=== PATIENT | female | born 1960 | race Caucasian/White ===

== ENCOUNTER 2022-01-13 12:28 | Inpatient (IN) | payer MEDICARE ==
[~2022-01-13] VITALS: Ht 160 cm; Wt 42.0 kg
[2022-01-15] MEDS ORDERED: TYLENOL325 MG PO (17:17)
--- NOTE | 2022-01-20 11:35 | EKG ---
[facility] [address] [facility] [place], [place] [address] Signed Sinus tachycardia Left axis deviation Septal infarct , age undetermined Abnormal ECG No previous ECGs available Confirmed by CLAUDIO ALLEN MD ([id number] on 01/20/2022 11:34:54 AM Electronically Signed By: CLAUDIO ALLEN MD 01/20/22 1135 PATIENT NAME: DEMARCUS POPE Electrocardiogram DATE OF : 56 PHYSICIAN: CLAUDIO ALLEN MD REPORT #: [id number] REPORT IS CONFIDENTIAL AND NOT TO BE RELEASED WITHOUT AUTHORIZATION
[2022-01-24] MEDS ORDERED: MELATONIN3 MG PO (16:14)
== END 2022-01-25 12:45 | DRG 871 ==
LOC: ED 12:28 → MS 15:40 → CCU 19:09 → MS 01-16 16:26
PROVIDERS: ADMIT Family Medicine; ATTEND Internal Medicine
DX: A41.9 Sepsis, unspecified organism (principal); J18.9 Pneumonia, unspecified organism; E87.20 Acidosis, unspecified; N39.0 Urinary tract infection, site not specified; E46 Unspecified protein-calorie malnutrition; Z68.1 Body mass index [BMI] 19.9 or less, adult; G35 Multiple sclerosis; R65.20 Severe sepsis without septic shock; Z90.49 Acquired absence of other specified parts of digestive tract; Z98.890 Other specified postprocedural states; Z66 Do not resuscitate; Z20.822 Contact with and (suspected) exposure to COVID-19; E83.51 Hypocalcemia
CPT/HCPCS: 36415; 51701; 71045; 74230; 80048; 80053; 80202; 81001; 83605; 83735; 85007; 85025; 85610; 85730; 86140; 87040; 87088; 87186; 87502; 92610; 92611; 93005; 93010; 94668; 94760; 97110; 97162; 97167; 97530; 97535; 97760; 99285-25; A9270; C9113; C9803; J0131; J0610; J0692; J1650; J1885; J1956; J2060; J2270; J2405; J2543; J2920; J2930; J3370; J3475; J3480; J7030; J7060; U0003

== ENCOUNTER 2024-06-13 11:30 | Inpatient (IN) | payer MEDICARE ==
[~2024-06-13] VITALS: Ht 160 cm; Wt 41.7 kg
[~2024-06-13 11:30] MED LIST: LOMOTIL TABLET1 EACH PO; MACROBID 100 M100 MG PO; MELATONIN3 MG PO; ONDANSETRON ODT4 MG PO; TYLENOL325 MG PO
[2024-06-13] MEDS ORDERED: DULOXETINE HCL20 MG PO (11:39)
[2024-06-13] MEDS ORDERED: PIPERACILLIN/TAZOBACTAM 4.5 GM VIAL ONE (11:59)
[2024-06-13] MEDS ORDERED: CEFTRIAXONE SODIUM 2 GM in SODIUM CHLORIDE 0.9% 100 ML IV ONE (12:00)
[2024-06-13] MEDS ORDERED: SODIUM CHLORIDE 0.9% 1,572 ML IV PRN (12:00)
[2024-06-13 12:15] LABS: BASOPHILS 0.3 % (0-2); EOSINOPHILS 0.4 % (0-6); HEMOGLOBIN 11.7 g/dL (12.0-18.0); LYMPHOCYTES 10.9 % (24-44); MCH 33.7 (27-36); MCHC 34.5 g/dl (30-36); MCV 97.8 fl (81-99); MONOCYTES 8.5 % (0-12); NEUTROPHILS 79.9 % (39-80); PLATELET COUNT 281 K/uL (140-440); RBC 3.48 M/ul (4.3-5.7); RDW 11.9 (10.5-15.0)
[2024-06-13] MEDS ORDERED: PIPERACILLIN/TAZOBACTAM 4.5 GM in SODIUM CHLORIDE 0.9% 100 ML IV ONE (12:15)
[2024-06-13] MEDS ORDERED: VANCOMYCIN HCL 1 GM in DEXTROSE 5% 250 ML IV ONE (12:30)
[2024-06-13 12:32] LABS: ALBUMIN 2.5 g/dL (3.4-5.0); ALBUMIN/GLOBULIN RATIO 0.56 (1.1-2.4); BILIRUBIN, TOTAL 0.4 mg/dL (0.2-1.0); BUN/CREATININE RATIO 18.64 (6.0-28.6); CALCIUM 8.9 mg/dL (8.5-10.1); CREATININE, SERUM 0.59 mg/dL (0.55-1.02)
[2024-06-13 12:36] LABS: LACTIC ACID, BLOOD 1.8 mmol/L (0.4-2.0)
[2024-06-13 13:44] LABS: BILIRUBIN, URINE NEGATIVE (negative); BLOOD/HGB, URINE SMALL (Negative); KETONE, URINE NEGATIVE (Negative); LEUK ESTERASE, URINE MODERATE (negative); NITRITE, URINE POSITIVE (negative)
[2024-06-13] MEDS ORDERED: POTASSIUM CHLORIDE 20 MEQ/15 ML CUP PO ONE (13:45)
[2024-06-13 14:11] LABS: EPITHELIAL CELLS, URINE SQUAMOUS 1+ /lpf (0-1+)
[2024-06-13 14:12] LABS: BACTERIA, URINE 3+ /hpf (negative); CASTS, URINE NONE SEEN \\lpf; COLLECTION TYPE, URINE CLEAN CATCH; CRYSTALS, URINE NONE SEEN (0-1+); REFLEX CULTURE, URINE Yes (No); WHITE BLOOD CELLS, URINE 21-40 /HPF (0-5)
[2024-06-13] MEDS ORDERED: ondansetron HCL 4 MG/2 ML VIAL IV PRN (15:45)
[2024-06-13] MEDS ORDERED: ACETAMINOPHEN 325 MG TAB PO PRN (15:45)
[2024-06-13] MEDS ORDERED: SODIUM CHLORIDE 0.9% 1,000 ML IV SCH (15:45)
[2024-06-13] MEDS ORDERED: POTASSIUM CHLORIDE 40 MEQ,LIDOCAINE HCL 1% 40 MG in DEXTROSE 5% 250 ML IV ONE (16:15)
[2024-06-13 16:29] VITALS: BP 130/66
[2024-06-13] MEDS ORDERED: MAGNESIUM SULFATE 2 GM/50 ML BAG IV ONE (16:30)
[2024-06-13] MEDS ORDERED: TYLENOL EXTRA500 MG PO (17:10)
[2024-06-13 18:04] VITALS: BP 130/66
[2024-06-13] MEDS ORDERED: ACETAMINOPHEN 500 MG TAB PO PRN (20:15)
[2024-06-13] MEDS ORDERED: MELATONIN 3 MG TAB PO PRN (21:00)
[2024-06-13] MEDS ORDERED: DULOXETINE HCL 20 MG CAP PO SCH (21:00)
[2024-06-13] MEDS ORDERED: PIPERACILLIN/TAZOBACTAM 3.375 GM VIAL ONE (21:16)
[2024-06-13 21:27] VITALS: BP 108/59
[2024-06-13 21:43] VITALS: BP 108/59
[2024-06-13] MEDS ORDERED: PIPERACILLIN/TAZOBACTAM 3.375 GM in SODIUM CHLORIDE 0.9% 100 ML IV SCH (22:00)
[2024-06-14] VITALS (11 sets, daily range): BP systolic 119–129; BP diastolic 60–83
[2024-06-14 05:20] LABS: BASOPHILS 0.6 % (0-2); EOSINOPHILS 1.6 % (0-6); HEMATOCRIT 31.9 % (35.0-50.0); HEMOGLOBIN 10.8 g/dL (12.0-18.0); LYMPHOCYTES 15.6 % (24-44); MCH 33.5 (27-36); MCHC 33.8 g/dl (30-36); MCV 98.9 fl (81-99); MONOCYTES 10.9 % (0-12); NEUTROPHILS 71.3 % (39-80); PLATELET COUNT 275 K/uL (140-440); RBC 3.23 M/ul (4.3-5.7); RDW 12.5 (10.5-15.0)
[2024-06-14 05:37] LABS: ALBUMIN 2.2 g/dL (3.4-5.0); ALBUMIN/GLOBULIN RATIO 0.52 (1.1-2.4); ANION GAP 6.6 (7-21); BILIRUBIN, TOTAL 0.5 mg/dL (0.2-1.0); BUN/CREATININE RATIO 11.53 (6.0-28.6); CALCIUM 8.6 mg/dL (8.5-10.1); CREATININE, SERUM 0.52 mg/dL (0.55-1.02); MAGNESIUM 2.1 mg/dL (1.8-2.4); PHOSPHORUS, INORGANIC 2.6 mg/dL (2.5-4.9); POTASSIUM 4.6 mmol/L (3.5-5.1); PROTEIN, TOTAL 6.4 g/dL (6.4-8.2)
[2024-06-14] MEDS ORDERED: PIPERACILLIN/TAZOBACTAM 3.375 GM VIAL ONE ×3 (06:12→20:38)
[2024-06-14] MEDS ORDERED: DAPTOmycin 500 MG/10 ML VIAL IV SCH (09:00)
[2024-06-14] MEDS ORDERED: ENOXAPARIN SODIUM 40 MG/0.4 ML SYR SUB-Q SCH (09:00)
[2024-06-14] MEDS ORDERED: PHARMACY RENAL DOSE ADJUSTMENT 1 DOSE MISC PO SCH (12:00)
[2024-06-15] VITALS (10 sets, daily range): BP systolic 128–143; BP diastolic 61–75
[2024-06-15] MEDS ORDERED: PIPERACILLIN/TAZOBACTAM 3.375 GM VIAL ONE ×3 (04:55→21:08)
[2024-06-15 05:20] LABS: BASOPHILS 0.7 % (0-2); EOSINOPHILS 3.7 % (0-6); HEMATOCRIT 30.7 % (35.0-50.0); HEMOGLOBIN 10.5 g/dL (12.0-18.0); LYMPHOCYTES 28.1 % (24-44); MCH 33.6 (27-36); MCV 98.8 fl (81-99); MONOCYTES 13.1 % (0-12); NEUTROPHILS 54.4 % (39-80); PLATELET COUNT 278 K/uL (140-440); RBC 3.11 M/ul (4.3-5.7); RDW 12.2 (10.5-15.0)
[2024-06-15 05:34] LABS: ALBUMIN 2.1 g/dL (3.4-5.0); ALBUMIN/GLOBULIN RATIO 0.54 (1.1-2.4); ANION GAP 8.3 (7-21); BILIRUBIN, TOTAL 0.2 mg/dL (0.2-1.0); BUN/CREATININE RATIO 7.54 (6.0-28.6); CALCIUM 8.5 mg/dL (8.5-10.1); CREATININE, SERUM 0.53 mg/dL (0.55-1.02); POTASSIUM 4.3 mmol/L (3.5-5.1)
[2024-06-16] VITALS (10 sets, daily range): BP systolic 115–148; BP diastolic 53–79
[2024-06-16] MEDS ORDERED: PIPERACILLIN/TAZOBACTAM 3.375 GM VIAL ONE ×3 (05:16→21:32)
[2024-06-16 05:57] LABS: BASOPHILS 0.7 % (0-2); EOSINOPHILS 4.6 % (0-6); HEMATOCRIT 32.1 % (35.0-50.0); HEMOGLOBIN 11.1 g/dL (12.0-18.0); LYMPHOCYTES 25.3 % (24-44); MCH 33.8 (27-36); MCHC 34.4 g/dl (30-36); MONOCYTES 11.1 % (0-12); NEUTROPHILS 58.3 % (39-80); PLATELET COUNT 345 K/uL (140-440); RBC 3.28 M/ul (4.3-5.7); RDW 12.4 (10.5-15.0)
[2024-06-16 06:18] LABS: ALBUMIN/GLOBULIN RATIO 0.51 (1.1-2.4); BILIRUBIN, TOTAL 0.2 mg/dL (0.2-1.0); BUN/CREATININE RATIO 6.66 (6.0-28.6); CALCIUM 8.4 mg/dL (8.5-10.1); CREATININE, SERUM 0.6 mg/dL (0.55-1.02); PROTEIN, TOTAL 5.9 g/dL (6.4-8.2)
[2024-06-16] MEDS ORDERED: ACETAMINOPHEN 500 MG TAB PO SCH (22:00)
[2024-06-17] VITALS (10 sets, daily range): BP systolic 112–141; BP diastolic 56–78
[2024-06-17 05:46] LABS: BASOPHILS 0.6 % (0-2); EOSINOPHILS 7.4 % (0-6); HEMATOCRIT 31.8 % (35.0-50.0); MCH 33.8 (27-36); MCHC 34.7 g/dl (30-36); MCV 97.3 fl (81-99); MONOCYTES 11.6 % (0-12); NEUTROPHILS 46.4 % (39-80); PLATELET COUNT 348 K/uL (140-440); RBC 3.26 M/ul (4.3-5.7); RDW 12.2 (10.5-15.0)
[2024-06-17] MEDS ORDERED: PIPERACILLIN/TAZOBACTAM 3.375 GM VIAL ONE ×3 (05:55→22:01)
[2024-06-17 06:02] LABS: ALBUMIN/GLOBULIN RATIO 0.51 (1.1-2.4); ANION GAP 9.9 (7-21); BILIRUBIN, TOTAL 0.2 mg/dL (0.2-1.0); BUN/CREATININE RATIO 5.08 (6.0-28.6); CALCIUM 8.3 mg/dL (8.5-10.1); CREATININE, SERUM 0.59 mg/dL (0.55-1.02); POTASSIUM 3.9 mmol/L (3.5-5.1); PROTEIN, TOTAL 5.9 g/dL (6.4-8.2)
[2024-06-18] VITALS (9 sets, daily range): BP systolic 111–147; BP diastolic 62–80
[2024-06-18] MEDS ORDERED: PIPERACILLIN/TAZOBACTAM 3.375 GM VIAL ONE ×3 (05:28→21:33)
[2024-06-18 05:58] LABS: BASOPHILS 0.7 % (0-2); EOSINOPHILS 5.7 % (0-6); HEMATOCRIT 31.9 % (35.0-50.0); HEMOGLOBIN 11.1 g/dL (12.0-18.0); LYMPHOCYTES 30.6 % (24-44); MCH 34.2 (27-36); MCHC 34.9 g/dl (30-36); MONOCYTES 10.5 % (0-12); NEUTROPHILS 52.5 % (39-80); PLATELET COUNT 371 K/uL (140-440); RBC 3.25 M/ul (4.3-5.7); RDW 12.2 (10.5-15.0)
[2024-06-18 06:18] LABS: ALBUMIN 2.2 g/dL (3.4-5.0); ALBUMIN/GLOBULIN RATIO 0.58 (1.1-2.4); ANION GAP 8.8 (7-21); BILIRUBIN, TOTAL 0.2 mg/dL (0.2-1.0); BUN/CREATININE RATIO 8.33 (6.0-28.6); CALCIUM 8.7 mg/dL (8.5-10.1); CREATININE, SERUM 0.48 mg/dL (0.55-1.02); POTASSIUM 3.8 mmol/L (3.5-5.1)
[2024-06-19] MEDS ORDERED: PIPERACILLIN/TAZOBACTAM 3.375 GM VIAL ONE (05:34)
[2024-06-19 05:49] VITALS: BP 141/70
[2024-06-19 05:50] VITALS: BP 141/70
[2024-06-19 10:09] VITALS: BP 124/65
[2024-06-19 10:45] VITALS: BP 124/65
== END 2024-06-19 12:02 | DRG 602 ==
LOC: ED 11:30 → MS 15:47
PROVIDERS: Emergency Medicine; ADMIT Family Medicine; ATTEND Family Medicine
DX: L03.317 Cellulitis of buttock (principal); E43 Unspecified severe protein-calorie malnutrition; N39.0 Urinary tract infection, site not specified; Z68.1 Body mass index [BMI] 19.9 or less, adult; G35 Multiple sclerosis; Z96.622 Presence of left artificial elbow joint; E87.6 Hypokalemia; R00.0 Tachycardia, unspecified; E83.42 Hypomagnesemia; S72.001G Fracture of unspecified part of neck of right femur, subsequent encounter for closed fracture with delayed healing; Z91.041 Radiographic dye allergy status; Z79.899 Other long term (current) drug therapy; Z90.49 Acquired absence of other specified parts of digestive tract; Z98.890 Other specified postprocedural states; X58.XXXD Exposure to other specified factors, subsequent encounter
CPT/HCPCS: 36415; 51701; 71045; 73502; 80053; 81001; 83605; 83735; 84100; 85025; 87040; 87088; 99284-25; A9270; J0878; J1650; J2543; J3370; J3475; J3480; J3490; J7030; J7060